=== PATIENT | female | born 1960 | race Two or more races ===

== ENCOUNTER 2016-06-19 13:19 | Emergency (ER) | payer SELFPAY ==
[~2016-06-19] VITALS: Ht 170.2 cm; Wt 75.3 kg
[2016-06-19 13:36] VITALS: BP 137/83
[2016-06-19] MEDS ORDERED: traMADol 50mg tab ORAL ONE (13:45)
[2016-06-19 13:58] LABS: APPEARANCE,URINE CLEAR; KETONES,URINE NEGATIVE (NEGATIVE); LEUKOCYTE ESTERASE ,URINE 3+ (NEGATIVE); NITRITE,URINE NEGATIVE (NEGATIVE); PH,URINE 6.5 (4.5-8.0); PROTEIN,URINE 2+ (NEGATIVE); UROBILINOGEN,URINE 1 MG/DL (0.0-1.0)
[2016-06-19 14:07] LABS: BACTERIA,URINE FEW /HPF; SQUAMOUS EPITHELIAL CELL,UR FEW /LPF (NONE/OCC); WBC,URINE 15-20 /HPF (0 - 2)
[2016-06-19] MEDS ORDERED: CEPHALEXIN500 MG ORAL (14:20)
[2016-06-19] MEDS ORDERED: NORCO 5-325 TA1 EAC1 ORAL (14:20)
[2016-06-19] MEDS ORDERED: IBUPROFEN600 MG ORAL (14:20)
[2016-06-19 15:02] VITALS: BP 134/80
[2016-06-19 15:03] VITALS: BP 134/80
--- NOTE | 2016-06-19 17:13 | Emergency Room Report ---
History of Present Illness General Chief Complaint: Female Urogenital Problems Source: Patient Present Illness HPI The patient is a 56-year-old female presenting for possible urinary tract infection. The patient states that she has had dysuria and increased urinary frequency for the past 2 weeks. She went to see her primary doctor yesterday and was diagnosed with a UTI. She was placed on ciprofloxacin which she states has not helped. Pain is described as an 8/10 burning sensation with urination. Pain radiates to the right flank. She does admit to subjective fevers. She denies any other symptoms including nausea, vomiting, vaginal discharge Allergies: Coded Allergies: ACETAMINOPHEN (Verified Allergy, Unknown, Itching, 06/19/16) HYDROCODONE (Verified Allergy, Unknown, Itching, 06/19/16) Patient History Past Medical History: see triage record Pertinent Family History: none Reviewed Nursing Documentation: PMH: Agreed, PSxH: Agreed Nursing Documentation-PMH Past Medical History: No Stated History Review of Systems All Other Systems: negative except mentioned in HPI Physical Exam Vital Signs Date Time Temp Pulse Resp B/P Pulse Ox O2 Delivery O2 Flow Rate FiO2 06/19/16 13:21 97.9 96 14 137/83 97 Room Air Sp02 EP Interpretation: reviewed, normal General Appearance: no apparent distress, alert, GCS 15, non-toxic Head: normocephalic, atraumatic Eyes: bilateral eye PERRL, bilateral eye normal inspection Respiratory: chest non-tender, lungs clear, normal breath sounds, speaking full sentences Gastrointestinal: normal bowel sounds, soft, non-distended, no guarding, no rebound, tenderness - suprapubic Genitourinary: CVA tenderness (R) Musculoskeletal: back normal, gait/station normal, normal range of motion, non- tender Neurologic: alert, oriented x3, responsive, motor strength/tone normal, sensory intact, speech normal Psychiatric: judgement/insight normal, memory normal, mood/affect normal, no suicidal/homicidal ideation Skin: normal color, no rash, warm/dry, well hydrated Lymphatic: no adenopathy Medical Decision Making PA Attestation Dr. Akers is my supervising physician. Patient management was discussed with my supervising physician Diagnostic Impression: Primary Impression: Pyelonephritis ER Course The patient is a 56-year-old female presenting for possible urinary tract infection. Differential diagnosis considered but not limited to: UTI, BV, yeast infection, pyelonephritis, PID, PE: Vitals WNL. NAD. Abdomen: Normal appearance. Non distended. No ecchymosis. Normal BS. TTP over suprapubic region only. No McBurney point tenderness. No guarding. + R sided CVA tenderness Urinalysis is consistent with urinary tract infection Due to flank pain, the patient will be discharged with a prescription for Keflex. She will discontinue the other antibiotics. ER precautions are given and she will follow up with PMD Laboratory Tests Test 06/19/16 13:30 Urine Color Yellow Urine Appearance Clear Urine pH 6.5 (4.5-8.0) Urine Specific [place] 1.010 (1.005-1.035) Urine Protein 2+ (NEGATIVE) H Urine Glucose (UA) Negative (NEGATIVE) Urine Ketones Negative (NEGATIVE) Urine Occult Blood 2+ (NEGATIVE) H Urine Nitrite Negative (NEGATIVE) Urine Bilirubin Negative (NEGATIVE) Urine Urobilinogen 1 MG/DL (0.0-1.0) H Urine Leukocyte Esterase 3+ (NEGATIVE) H Urine RBC 2-4 /HPF (0 - 2) H Urine WBC 15-20 /HPF (0 - 2) H Urine Squamous Epithelial Cells Few /LPF (NONE/OCC) Urine Bacteria Few /HPF (NONE) Lab Results Impression There are many white blood cells with few bacteria Last Vital Signs Date Time Temp Pulse Resp B/P Pulse Ox O2 Delivery O2 Flow Rate FiO2 06/19/16 15:03 97.9 71 16 134/80 97 Room Air Status: improved Disposition: HOME, SELF-CARE Condition: Improved Scripts Hydrocodone Bit/Acetaminophen 5-325* (NORCO 5-325 TABLET*) 1 Each Tablet 1 TAB ORAL Q6HR Y for For Pain, #10 TAB Prov: TERZIAN,BHARATH P.A. 06/19/16 Ibuprofen* (MOTRIN*) 600 Mg Tablet 600 MG ORAL Q8H Y for For Pain, #30 TAB 0 Refills Prov: TERZIAN,BHARATH P.A. 06/19/16 Cephalexin* (KEFLEX*) 500 Mg Capsule 500 MG ORAL EVERY 6 HOURS, #28 CAP Prov: TERZIAN,BHARATH P.A. 06/19/16 Patient Instructions: Urinary Tract Infection Additional Instructions: I discussed my findings with the patient. All questions and concerns have been answered. Treatment and medication compliance have been addressed. I advised the patient that they need to follow up with PMD in 3-5 days. Return to ED if symptoms worsen, new symptoms arise, or if needed for any reason. Patient verbalized understanding of discharge instructions. BHARATH SYED June 19, 2016 17:13
== END 2016-06-19 15:06 | disposition home or self-care (01) ==
LOC: EMR 13:38
DX: N12 Tubulo-interstitial nephritis, not specified as acute or chronic (principal); R30.0 Dysuria; R35.0 Frequency of micturition; Z88.5 Allergy status to narcotic agent; Z88.6 Allergy status to analgesic agent
CPT/HCPCS: 81003; 87086; 99284